=== PATIENT | female | born 1990 | race Caucasian/White ===

== ENCOUNTER 2017-04-09 19:49 | Emergency (ER) | payer OTHER ==
[2017-04-09 20:22] LABS: Glucose,Whole Blood 76 mg/dL (75-99)
--- NOTE | 2017-04-09 20:29 | ED ---
General Adult HPI - General Chief complaint: Syncope Stated complaint: Dizziness Time Seen by Provider: 04/09/17 20:17 Source: patient, RN notes reviewed, old records reviewed Mode of arrival: wheelchair Limitations: no limitations - History of Present Illness Initial comments: This is a 26-year-old female here for reevaluation syncopal event. Patient has had multiple sick movements the last year. No significant medical history of cause of syncope. No headache or chest pain or stress breath abdominal pain. Syncope is positional when she gets up from standing or walking. Happened 3 times today. She does admit to recent weight loss, no change in medications. No [id number] medications - Related Data Home Medications Medication Instructions Recorded Confirmed Inulin/Chromium Picolinate [Fiber 2 tab PO DAILY 04/09/17 04/09/17 Gummies Chew] Levothyroxine Sodium [Synthroid] 100 mcg PO Q48H 04/09/17 04/09/17 Topiramate [Topamax] 100 mg PO BID 04/09/17 04/09/17 Allergies Allergy/AdvReac Type Severity Reaction Status Date / Time cefaclor [From Ceclor] Allergy Unknown Verified 04/09/17 20:00 cephalexin monohydrate Allergy Unknown Verified 04/09/17 20:00 [From Keflex] Penicillins Allergy Unknown Verified 04/09/17 20:00 Sulfa (Sulfonamide Allergy Unknown Verified 04/09/17 20:00 Antibiotics) Review of Systems ROS Statement: Those systems with pertinent positive or pertinent negative responses have been documented in the HPI. ROS Other: All systems not noted in ROS Statement are negative. Past Medical History Past Medical History: Thyroid Disorder Additional Past Medical History / Comment(s): migraines, hypothyroid History of Any Multi-Drug Resistant Organisms: None Reported Past Surgical History: Appendectomy, Section Past Anesthesia/Blood Transfusion Reactions: No Reported Reaction Past Psychological History: Anxiety, Bipolar, Depression Additional Psychological History / Comment(s): pt does not take meds or see a counselor. Smoking Status: Never smoker Past Alcohol Use History: Occasional Past Drug Use History: None Reported - Past Family History Father Family Medical History: Hypertension General Exam Limitations: no limitations General appearance: alert, in no apparent distress Head exam: Present: atraumatic, normocephalic, normal inspection Eye exam: Present: normal appearance, PERRL, EOMI. Absent: scleral icterus, conjunctival injection, periorbital swelling ENT exam: Present: normal exam, mucous membranes moist Neck exam: Present: normal inspection. Absent: tenderness, meningismus, lymphadenopathy Respiratory exam: Present: normal lung sounds bilaterally. Absent: respiratory distress, wheezes, rales, rhonchi, stridor Cardiovascular Exam: Present: regular rate, normal rhythm, normal heart sounds. Absent: systolic murmur, diastolic murmur, rubs, gallop, clicks GI/Abdominal exam: Present: soft, normal bowel sounds. Absent: distended, tenderness, guarding, rebound, rigid Extremities exam: Present: normal inspection, full ROM, normal capillary refill. Absent: tenderness, pedal edema, joint swelling, calf tenderness Back exam: Present: normal inspection Neurological exam: Present: alert, oriented X3, CN II-XII intact Psychiatric exam: Present: normal affect, normal mood Skin exam: Present: warm, dry, intact, normal color. Absent: rash Course Vital Signs 04/09/17 19:50 Temperature 98.4 F Pulse Rate 58 L Respiratory 16 Rate Blood Pressure 126/75 O2 Sat by Pulse 99 Oximetry - Reevaluation(s) Reevaluation #1: 04/09/17 20:28 History remain without syncopal event here in the emergency room Reevaluation #2: 04/09/17 20:28 Patient greater than 15 minutes regarding diagnosis, patient agrees to plan 04/09/17 20:28 EKG Findings - EKG Comments: EKG Findings:: EKG shows sinus bradycardia rate of 55, GA 42, QRS 96, QTC 392, no WPW, no Brugada Medical Decision Making - Medical Decision Making 26 female neurosyncope, positional syncope. Orthostatic EKG and urine is negative. Patient can be discharged on - Lab Data Lab Results 04/09/17 Range/Units 20:21 POC Glucose (mg/dL) 76 (75-99) mg/dL POC Glu Plaster Foreman ID Barbara Gonzalez Disposition Clinical Impression: Vasovagal syncope Disposition: HOME SELF-CARE Condition: Good Instructions: Syncope (ED) Referrals: Hortencia Zelaya MD [STAFF PHYSICIAN] - 1-2 days
[2017-04-09 21:04] VITALS: BP 116/67; PULSE 52; RESP 18; TEMP 99.1
== END 2017-04-09 21:03 | disposition home or self-care (01) ==
LOC: EC 19:49
DX: R55 Syncope and collapse (principal); E03.9 Hypothyroidism, unspecified; Z79.4 Long term (current) use of insulin; Z79.899 Other long term (current) drug therapy; Z88.0 Allergy status to penicillin; Z88.2 Allergy status to sulfonamides; Z88.1 Allergy status to other antibiotic agents; Z88.8 Allergy status to other drugs, medicaments and biological substances
CPT/HCPCS: 36415; 93005; 99284

== ENCOUNTER → 2017-05-31 | Outpatient (CLI) | payer OTHER ==
[2017-05-31 09:36] VITALS: BMI 27.3
== END | disposition home or self-care (01) ==
LOC: MNTWWP 09:05
PROVIDERS: ATTEND Family Medicine
DX: E16.2 Hypoglycemia, unspecified (principal)
CPT/HCPCS: 97802

== ENCOUNTER → 2017-12-29 | Outpatient (CLI) | payer OTHER ==
[2017-12-29 11:31] LABS: Basophils % (A) 1 %; Eosinophils # (A) 0.1 k/uL (0-0.7); Eosinophils % (A) 1 %; HCT 39.9 % (34.0-46.0); HGB 13.7 gm/dL (11.4-16.0); Lymphocytes # (A) 2.5 k/uL (1.0-4.8); Lymphocytes % (A) 39 %; MCHC 34.2 g/dL (31.0-37.0); MCV 87.5 fL (80.0-100.0); Mean Platelet Volume 6.7; Monocytes # (A) 0.3 k/uL (0-1.0); Monocytes % (A) 5 %; Neutrophils # (A) 3.5 k/uL (1.3-7.7); Neutrophils % (A) 53 %; Platelet Count 353 k/uL (150-450); RBC 4.56 m/uL (3.80-5.40); RDW 13.2 % (11.5-15.5); WBC 6.6 k/uL (3.8-10.6)
[2017-12-29 12:05] LABS: ALT 23 U/L (9-52); AST 17 U/L (14-36); Albumin 3.8 g/dL (3.5-5.0); Alkaline Phosphatase 50 U/L (38-126); Anion Gap 11 mmol/L; Blood Urea Nitrogen 13 mg/dL (7-17); Calcium 9.4 mg/dL (8.4-10.2); Carbon Dioxide 19 mmol/L (22-30); Chloride 113 mmol/L (98-107); Cholesterol 163 mg/dL (<200); Glucose 79 mg/dL (74-99); HDL Cholesterol 52 mg/dL (40-60); LDL Cholesterol,Calculated 102 mg/dL (0-99); Potassium 3.9 mmol/L (3.5-5.1); Sodium 143 mmol/L (137-145); Total Bilirubin 0.9 mg/dL (0.2-1.3); Triglycerides 44 mg/dL (<150)
[2017-12-29 12:18] LABS: T4, Free (Free Thyroxine) 1.01 ng/dL (0.78-2.19)
== END | disposition home or self-care (01) ==
LOC: LABWHC1 10:39
PROVIDERS: ATTEND Family Medicine
DX: Z00.00 Encounter for general adult medical examination without abnormal findings (principal); E03.9 Hypothyroidism, unspecified
CPT/HCPCS: 36415; 80053; 80061; 84439; 84443; 85025

== ENCOUNTER 2019-01-30 13:35 | Emergency (ER) | payer BC, OTHER ==
[2019-01-30 13:51] VITALS: BP 109/68; PULSE 80; RESP 18; TEMP 97.9
[2019-01-30] MEDS ORDERED: DIAZEPAM 5 MG TAB PO STA (14:10)
[2019-01-30] MEDS ORDERED: ACET/COD 300 MG/30 MG STARTER PACK 6 TAB BTL PO STA (14:10)
--- NOTE | 2019-01-30 14:12 | ED ---
General Adult HPI - General Chief complaint: Back Pain/Injury Stated complaint: Back injury Source: patient Mode of arrival: wheelchair Limitations: no limitations - History of Present Illness Initial comments: 28-year-old female presenting today for bilateral low back pain. Patient states yesterday around 4 PM she bent over to grab a laundry basket. She states before she could grab the basket she felt a pop in her lower back and discomfort. She states that she has had bilateral low back pain she states she is unable to get in a comfortable position and increases with walking. She states at times the pain radiates down her legs bilaterally. Patient denies any urinary retention, loss of bowel bladder control, loss of sensation, numbness tingling or muscle weakness of the lower extremity is spared patient states she is able to ambulate however it is painful. Patient denies history of IV drug use, history of cancer, fever chills or night sweats. Remaining review of system negative, patient denies any recent shortness of breath, chest pain, abdominal pain, nausea or vomiting, dysuria or hematuria, constipation or diarrhea, headaches or visual changes, or any other complaints. On arrival patient's vital signs within normal limits. Patient is well-appearing no signs of acute distress. Patient ambulatory. - Related Data Home Medications Medication Instructions Recorded Confirmed Inulin/Chromium Picolinate [Fiber 2 tab PO DAILY 04/09/17 04/09/17 Gummies Chew] Levothyroxine Sodium [Synthroid] 100 mcg PO Q48H 04/09/17 04/09/17 Topiramate [Topamax] 100 mg PO BID 04/09/17 04/09/17 Previous Rx's Medication Instructions Recorded Cyclobenzaprine [Flexeril] 10 mg PO TID PRN 7 Days #21 tab 01/30/19 Ibuprofen 800 mg PO Q8H PRN 7 Days #21 tablet 01/30/19 Allergies Allergy/AdvReac Type Severity Reaction Status Date / Time cefaclor [From Ceclor] Allergy Unknown Verified 01/30/19 13:51 cephalexin monohydrate Allergy Unknown Verified 01/30/19 13:51 [From Keflex] Penicillins Allergy Unknown Verified 01/30/19 13:51 Sulfa (Sulfonamide Allergy Unknown Verified 01/30/19 13:51 Antibiotics) Review of Systems ROS Statement: Those systems with pertinent positive or pertinent negative responses have been documented in the HPI. ROS Other: All systems not noted in ROS Statement are negative. Past Medical History Past Medical History: Thyroid Disorder Additional Past Medical History / Comment(s): migraines, hypothyroid History of Any Multi-Drug Resistant Organisms: None Reported Past Surgical History: Appendectomy, Section Past Anesthesia/Blood Transfusion Reactions: No Reported Reaction Past Psychological History: Anxiety, Bipolar, Depression Smoking Status: Never smoker Past Alcohol Use History: Occasional Past Drug Use History: None Reported - Past Family History Father Family Medical History: Hypertension General Exam - General Exam Comments Initial Comments: General: The patient is awake and alert, in no distress, and does not appear acutely ill. Eye: +3 mm pupils are equal, round and reactive to light, extra-ocular movements are intact. No nystagmus. There is normal conjunctiva bilaterally. No signs of icterus. Ears, nose, mouth and throat: There are moist mucous membranes and no oral lesions. Neck: The neck is supple, there is no tenderness or JVD. Cardiovascular: There is a regular rate and rhythm. No murmur, rub or gallop is appreciated. Respiratory: Lungs are clear to auscultation, respirations are non-labored, b reath sounds are equal. No wheezes, stridor, rales, or rhonchi. Gastrointestinal: Soft, non-distended, non-tender abdomen without masses or organomegaly noted. There is no rebound or guarding present. Musculoskeletal: Upon inspection of the back no bruising, erythema. pt has both midline and tenderness to palpation of the lumbar spine. Muscle spasm palpable. Normal ROM, no tenderness of the LE equal b/l. Strength 5/5 of the LE equal b/l. Sensation intact of the lower extremities equal bilaterally including saddle region. Radial pulses equal bilaterally 2+. Neurological: A&O x 3. CN II-XII intact, There are no obvious motor or sensory deficits. Coordination appears grossly intact. Speech is normal. Skin: Skin is warm and dry and no rashes or lesions are noted. Psychiatric: Cooperative, appropriate mood & affect, normal judgment. Limitations: no limitations Course Vital Signs 01/30/19 13:49 Temperature 97.9 F Pulse Rate 80 Respiratory 18 Rate Blood Pressure 109/68 O2 Sat by Pulse 97 Oximetry Medical Decision Making - Medical Decision Making 28yo female presenting today for chief complaint of low back pain. Patient bent forward yesterday experiencing low back pain. Patient has paravertebral tenderness as well as midline on examination. No back flags on history taking. No history of significant trauma. DDX low back strain vs bulging disc. Patient has no neurovascular deficits. Patient appears well ambulatory. No findings concerning for cauda equina. This time I feel patient is stable for discharge with primary care follow-up. I insisted that patient's symptoms persist for greater than one week she's evaluated by orthopedic surgery. Patient states she has established care. Return parameters were discussed at length and in detail with patient including besides symptoms concerning for cauda equina. She verbalized understanding. Patient was treated symptomatically within the [facility] department. Patient be discharged with muscle relaxant, and was provided with a work note. Patient is agreeable with plan and foregoing imaging studies today. I discussed the case attending provider Dr. Cruz, who is agreeable with plan and discharge. Disposition Clinical Impression: Low back strain, Low back pain Disposition: HOME SELF-CARE Condition: Good Instructions (If sedation given, give patient instructions): Acute Low Back Pain (ED) Additional Instructions: Please use medication as discussed. Please follow-up with family doctor in the next 2 days, if symptoms persist for greater than 2 weeks please follow-up with orthopedic surgery. Please return to emergency room if the symptoms increase or worsen or for any other concerns. Prescriptions: Cyclobenzaprine [Flexeril] 10 mg PO TID PRN 7 Days #21 tab PRN Reason: Muscle Spasm Ibuprofen 800 mg PO Q8H PRN 7 Days #21 tablet PRN Reason: Pain Is patient prescribed a controlled substance at d/c from ED?: No Referrals: Jero Scott MD [Primary Care Provider] - 1-2 days Time of Disposition: 14:12
== END 2019-01-30 14:20 | disposition home or self-care (01) ==
LOC: EC 13:35
DX: S39.012A Strain of muscle, fascia and tendon of lower back, initial encounter (principal); E03.9 Hypothyroidism, unspecified; G43.909 Migraine, unspecified, not intractable, without status migrainosus; Z79.890 Hormone replacement therapy; Z79.899 Other long term (current) drug therapy; Z88.1 Allergy status to other antibiotic agents; Z88.0 Allergy status to penicillin; Z88.2 Allergy status to sulfonamides; X50.9XXA Other and unspecified overexertion or strenuous movements or postures, initial encounter
CPT/HCPCS: 99283

== ENCOUNTER 2020-12-26 23:45 | Emergency (ER) | payer BC ==
[2020-12-27] VITALS: RESP 18; TEMP 98.3
--- NOTE | 2020-12-27 00:02 | ED ---
Abdominal Pain HPI - General Chief Complaint: Abdominal Pain Stated Complaint: Abdominal Pain, 5 wks pgt Time Seen by Provider: 12/26/20 23:51 Source: patient Mode of arrival: ambulatory Limitations: no limitations - History of Present Illness Initial Comments: 30yo female presenting for cc of lower pelvic cramping. pt states she believes she is approximately 5 week . she states that for the past 24 hours she has had sharp cramping in the lower pelvic pain bilaterally. patient denies upper abdominal pain, nausea, vomiting, unilateral pain, urinary symptoms, vaginal bleeding or discharge. Denies previous US. Patient denies previous ectopic pregnancies. Patient denies additional complaints. she appears nontoxic in no acute distress on arrival. - Related Data Home Medications Medication Instructions Recorded Confirmed Inulin/Chromium Picolinate [Fiber 2 tab PO DAILY 04/09/17 04/09/17 Gummies Chew] Levothyroxine Sodium [Synthroid] 100 mcg PO Q48H 04/09/17 04/09/17 Topiramate [Topamax] 100 mg PO BID 04/09/17 04/09/17 Previous Rx's Medication Instructions Recorded Cyclobenzaprine [Flexeril] 10 mg PO TID PRN 7 Days #21 tab 01/30/19 Ibuprofen 800 mg PO Q8H PRN 7 Days #21 tablet 01/30/19 Allergies Allergy/AdvReac Type Severity Reaction Status Date / Time cefaclor [From Ceclor] Allergy Unknown Verified 01/30/19 13:51 cephalexin monohydrate Allergy Unknown Verified 01/30/19 13:51 [From Keflex] Penicillins Allergy Unknown Verified 01/30/19 13:51 Sulfa (Sulfonamide Allergy Unknown Verified 01/30/19 13:51 Antibiotics) Review of Systems ROS Statement: Those systems with pertinent positive or pertinent negative responses have been documented in the HPI. ROS Other: All systems not noted in ROS Statement are negative. Past Medical History Past Medical History: Thyroid Disorder Additional Past Medical History / Comment(s): migraines, hypothyroid History of Any Multi-Drug Resistant Organisms: None Reported Past Surgical History: Appendectomy, Section Past Anesthesia/Blood Transfusion Reactions: No Reported Reaction Past Psychological History: Anxiety, Bipolar, Depression Smoking Status: Never smoker Past Alcohol Use History: Occasional Past Drug Use History: None Reported - Past Family History Father Family Medical History: Hypertension General Exam - General Exam Comments Initial Comments: General: The patient is awake and alert, in no distress Eye: +3 mm pupils are equal, round and reactive to light, extra-ocular movements are intact. No nystagmus. There is normal conjunctiva bilaterally. No signs of icterus. Ears, nose, mouth and throat: There are moist mucous membranes and no oral lesions. Neck: The neck is supple, there is no tenderness or JVD. Cardiovascular: There is a regular rate and rhythm. No murmur, rub or gallop is appreciated. Respiratory: Lungs are clear to auscultation, respirations are non-labored, breath sounds are equal. No wheezes, stridor, rales, or rhonchi. Gastrointestinal: Soft, non-distended, mild lower pelvic tenderness, abdomen without masses or organomegaly noted. There is no rebound or guarding present. : There is no cervical motion tenderness, no vaginal bleeding, scant discharge, OS appears closed. no adnexal tenderness. Musculoskeletal: Normal ROM, no tenderness. Strength 5/5. Sensation intact. R adial pulses equal bilaterally 2+. Neurological: A&O x 3. CN II-XII intact grossly, There are no obvious motor or sensory deficits. Coordination appears grossly intact. Speech is normal. Skin: Skin is warm and dry and no rashes or lesions are noted. Psychiatric: Cooperative, appropriate mood & affect, normal judgment. Limitations: no limitations Course Vital Signs 12/26/20 12/27/20 23:57 01:00 Temperature 98.3 F Pulse Rate 89 82 Respiratory 18 18 Rate Blood Pressure 124/83 121/82 O2 Sat by Pulse 97 97 Oximetry Medical Decision Making - Medical Decision Making US gestational sac-no pole or yolk correlate with patient LMP. exam some mild felt to be physiological discharge. No cervical motion tenderness no adnexal tenderness eyes closed. No vaginal bleeding. Patient has no McBurneys point or localized left sided or right sided tenderness at this time I recommend OB f/u in office, home monitoring of tenderness, return for bleeding/worsening pain. pt is agreeable to this care plan and discharge. - Lab Data Result diagrams: 12/27/20 00:07 12/27/20 00:07 Lab Results 12/27/20 12/27/20 12/27/20 Range/Units 00:07 00:07 00:07 WBC 11.4 H (3.8-10.6) k/uL RBC 4.74 (3.80-5.40) m/uL Hgb 13.5 (11.4-16.0) gm/dL Hct 39.7 (34.0-46.0) % MCV 83.8 (80.0-100.0) fL MCH 28.5 (25.0-35.0) pg MCHC 34.1 (31.0-37.0) g/dL RDW 13.7 (11.5-15.5) % Plt Count 419 (150-450) k/uL MPV 6.9 Neutrophils % 64 % Lymphocytes % 28 % Monocytes % 5 % Eosinophils % 1 % Basophils % 1 % Neutrophils # 7.4 (1.3-7.7) k/uL Lymphocytes # 3.2 (1.0-4.8) k/uL Monocytes # 0.5 (0-1.0) k/uL Eosinophils # 0.1 (0-0.7) k/uL Basophils # 0.1 (0-0.2) k/uL Sodium 136 L (137-145) mmol/L Potassium 3.8 (3.5-5.1) mmol/L Chloride 106 (98-107) mmol/L Carbon Dioxide 20 L (22-30) mmol/L Anion Gap 10 mmol/L BUN 10 (7-17) mg/dL Creatinine 0.69 (0.52-1.04) mg/dL Est GFR (CKD-EPI)AfAm >90 (>60 ml/min/1.73 sqM) Est GFR (CKD-EPI)NonAf >90 (>60 ml/min/1.73 sqM) Glucose 102 H (74-99) mg/dL Calcium 9.5 (8.4-10.2) mg/dL Total Bilirubin 0.3 (0.2-1.3) mg/dL AST 19 (14-36) U/L ALT 14 (4-34) U/L Alkaline Phosphatase 59 (38-126) U/L Total Protein 7.7 (6.3-8.2) g/dL Albumin 4.1 (3.5-5.0) g/dL HCG, Quant 70886.7 mIU/mL Urine Color Urine Appearance (Clear) Urine pH (5.0-8.0) Ur Specific [place] (1.001-1.035) Urine Protein (Negative) Urine Glucose (UA) (Negative) Urine Ketones (Negative) Urine Blood (Negative) Urine Nitrite (Negative) Urine Bilirubin (Negative) Urine Urobilinogen (<2.0) mg/dL Ur Leukocyte Esterase (Negative) Urine RBC (0-5) /hpf Urine WBC (0-5) /hpf Ur Squamous Epith Cells (0-4) /hpf Amorphous Sediment (None) /hpf Urine Bacteria (None) /hpf Urine Mucus (None) /hpf Trichomonas Ag (Rapid) (Negative) Blood Type B Positive Blood Type Recheck No Previous Record Bld Type Recheck Status [facility] 12/27/20 12/27/20 Range/Units 00:35 01:58 WBC (3.8-10.6) k/uL RBC (3.80-5.40) m/uL Hgb (11.4-16.0) gm/dL Hct (34.0-46.0) % MCV (80.0-100.0) fL MCH (25.0-35.0) pg MCHC (31.0-37.0) g/dL RDW (11.5-15.5) % Plt Count (150-450) k/uL MPV Neutrophils % % Lymphocytes % % Monocytes % % Eosinophils % % Basophils % % Neutrophils # (1.3-7.7) k/uL Lymphocytes # (1.0-4.8) k/uL Monocytes # (0-1.0) k/uL Eosinophils # (0-0.7) k/uL Basophils # (0-0.2) k/uL Sodium (137-145) mmol/L Potassium (3.5-5.1) mmol/L Chloride (98-107) mmol/L Carbon Dioxide (22-30) mmol/L Anion Gap mmol/L BUN (7-17) mg/dL Creatinine (0.52-1.04) mg/dL Est GFR (CKD-EPI)AfAm (>60 ml/min/1.73 sqM) Est GFR (CKD-EPI)NonAf (>60 ml/min/1.73 sqM) Glucose (74-99) mg/dL Calcium (8.4-10.2) mg/dL Total Bilirubin (0.2-1.3) mg/dL AST (14-36) U/L ALT (4-34) U/L Alkaline Phosphatase (38-126) U/L Total Protein (6.3-8.2) g/dL Albumin (3.5-5.0) g/dL HCG, Quant mIU/mL Urine Color Light Yellow Urine Appearance Cloudy H (Clear) Urine pH 5.5 (5.0-8.0) Ur Specific [place] 1.009 (1.001-1.035) Urine Protein Negative (Negative) Urine Glucose (UA) Negative (Negative) Urine Ketones Negative (Negative) Urine Blood Negative (Negative) Urine Nitrite Negative (Negative) Urine Bilirubin Negative (Negative) Urine Urobilinogen <2.0 (<2.0) mg/dL Ur Leukocyte Esterase Negative (Negative) Urine RBC 1 (0-5) /hpf Urine WBC 1 (0-5) /hpf Ur Squamous Epith Cells 13 H (0-4) /hpf Amorphous Sediment Rare H (None) /hpf Urine Bacteria Rare H (None) /hpf Urine Mucus Rare H (None) /hpf Trichomonas Ag (Rapid) Negative (Negative) Blood Type Blood Type Recheck Bld Type Recheck Status Disposition Clinical Impression: Abdominal cramping affecting Disposition: HOME SELF-CARE Condition: Good Instructions (If sedation given, give patient instructions): Threatened Mi scarriage (ED) Additional Instructions: Please use medication as discussed. Please follow-up with OBGYN in the next 2 days. Please return to emergency room if the symptoms increase or worsen or for any other concerns. Is patient prescribed a controlled substance at d/c from ED?: No Referrals: Jero Scott MD [Primary Care Provider] - 1-2 days Time of Disposition: 01:47
[2020-12-27] MEDS ORDERED: ONDANSETRON 4 MG/2 ML VIAL IVP STA (00:24)
[2020-12-27 00:36] LABS: Basophils # (A) 0.1 k/uL (0-0.2); Basophils % (A) 1 %; Eosinophils # (A) 0.1 k/uL (0-0.7); Eosinophils % (A) 1 %; HCT 39.7 % (34.0-46.0); HGB 13.5 gm/dL (11.4-16.0); Lymphocytes # (A) 3.2 k/uL (1.0-4.8); Lymphocytes % (A) 28 %; MCH 28.5 pg (25.0-35.0); MCHC 34.1 g/dL (31.0-37.0); MCV 83.8 fL (80.0-100.0); Mean Platelet Volume 6.9; Monocytes # (A) 0.5 k/uL (0-1.0); Monocytes % (A) 5 %; Neutrophils # (A) 7.4 k/uL (1.3-7.7); Neutrophils % (A) 64 %; Platelet Count 419 k/uL (150-450); RBC 4.74 m/uL (3.80-5.40); RDW 13.7 % (11.5-15.5); WBC 11.4 k/uL (3.8-10.6)
[2020-12-27 00:46] LABS: African American GFR (CKD) >90 (>60 ml/min/1.73 sqM); Anion Gap 10 mmol/L; Blood Urea Nitrogen 10 mg/dL (7-17); Carbon Dioxide 20 mmol/L (22-30); Chloride 106 mmol/L (98-107); Glucose 102 mg/dL (74-99); Potassium 3.8 mmol/L (3.5-5.1); Sodium 136 mmol/L (137-145)
[2020-12-27 00:47] LABS: ALT 14 U/L (4-34); AST 19 U/L (14-36); Albumin 4.1 g/dL (3.5-5.0); Alkaline Phosphatase 59 U/L (38-126); Calcium 9.5 mg/dL (8.4-10.2); Non-African American GFR(CKD) >90 (>60 ml/min/1.73 sqM); Total Bilirubin 0.3 mg/dL (0.2-1.3); Total Protein 7.7 g/dL (6.3-8.2)
--- NOTE | 2020-12-27 01:25 | US ---
EXAM: US First Trimester , Transabdominal CLINICAL HISTORY: ITS.REASON US Reason: pain TECHNIQUE: Real-time transabdominal obstetrical ultrasound of the maternal pelvis and a first trimester with image documentation. COMPARISON: None FINDINGS: Uterus: Measures 8.9 x 5.5 x 5.7 cm. Gestational sac identified within the endometrial cavity, with mean sac diameter measuring 0.61 cm. No pole or yolk sac identified on this exam. Cervix is long and closed. Placenta/amniotic fluid: Cannot be adequately evaluated due to the early gestational age. Ovaries: The right ovary measures 1.5 x 2.0 x 1.3 cm. The left ovary measures 1.5 x 2.1 x 1.4 cm. The ovaries demonstrate normal color flow. Other: No free fluid is identified. No adnexal mass. LMP: 11/18/2020 GA by LMP: 5 weeks 4 days MAYLIN by LMP: 08/25/2021 Average ultrasound age: Gestational sac is too small to correlate with a gestational age. IMPRESSION: Single intrauterine gestational sac. No pole or yolk sac identified on this exam. Findings may be due to early stage of . Please correlate with serial beta hCG measurements and short-term follow-up exam if clinically indicated.
[2020-12-27 01:26] LABS: HCG,Quantitative Serum 11758.7 mIU/mL
[2020-12-27 01:58] VITALS: BP 121/82; PULSE 82
[2020-12-27 02:17] LABS: Amorphous Sediment,Urine Rare /hpf; Appearance,Urine Cloudy (Clear); Bacteria,Urine Rare /hpf; Bilirubin,Urine Negative (Negative); Blood,Urine Negative (Negative); Color,Urine Light Yellow; Glucose,Urine (UA) Negative (Negative); Ketones,Urine Negative (Negative); Leukocyte Esterase,Urine Negative (Negative); Mucus,Urine Rare /hpf; Nitrite,Urine Negative (Negative); PH, Urine 5.5 (5.0-8.0); Protein,Urine Negative (Negative); RBC,Urine 1 /hpf (0-5); Specific Gravity,Urine 1.009 (1.001-1.035); Squamous Epithelial Cell,Urine 13 /hpf (0-4); Urobilinogen,Urine <2.0 mg/dL (<2.0); WBC,Urine 1 /hpf (0-5)
[2020-12-29 13:30] LABS: C. trachomatis,PCR Negative (Neg,Equiv); Chlamydia trachomatis Source Vagina; N. gonorrhoeae,PCR Negative (Neg,Equiv); Neisseria Source Vagina
== END 2020-12-27 02:35 | disposition home or self-care (01) ==
LOC: EC 23:45
DX: O99.891 Other specified diseases and conditions complicating pregnancy (principal); R10.30 Lower abdominal pain, unspecified; O99.281 Endocrine, nutritional and metabolic diseases complicating pregnancy, first trimester; E03.9 Hypothyroidism, unspecified; O99.351 Diseases of the nervous system complicating pregnancy, first trimester; G43.909 Migraine, unspecified, not intractable, without status migrainosus; Z88.1 Allergy status to other antibiotic agents; Z79.890 Hormone replacement therapy; Z88.0 Allergy status to penicillin; Z88.2 Allergy status to sulfonamides; Z79.899 Other long term (current) drug therapy; Z3A.01 Less than 8 weeks gestation of pregnancy
CPT/HCPCS: 36415; 86900; 86901; 80053; 85025; 81001; 84702; 87808; 87491; 87591; 87070; 76801; 99284; 96374; J2405

== ENCOUNTER 2021-06-15 19:07 | Emergency (ER) | payer BC ==
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
[2021-06-15 20:15] LABS: Appearance,Urine Clear (Clear); Bilirubin,Urine Negative (Negative); Blood,Urine Negative (Negative); Color,Urine Colorless; Glucose,Urine (UA) Negative (Negative); Ketones,Urine Negative (Negative); Leukocyte Esterase,Urine Negative (Negative); Nitrite,Urine Negative (Negative); Protein,Urine Negative (Negative); Specific Gravity,Urine 1.002 (1.001-1.035); Urobilinogen,Urine <2.0 mg/dL (<2.0)
[2021-06-15 20:18] LABS: Amphetamine Screen,Urine Not Detected (NotDetected); Barbiturate Screen,Urine Not Detected (NotDetected); Benzodiazepines Screen,Urine Not Detected (NotDetected); Cocaine Screen,Urine Not Detected (NotDetected); Methadone Screen, Urine Not Detected (NotDetected); Opiate Screen,Urine Not Detected (NotDetected); Oxycodone Screen, Urine Not Detected (NotDetected); Phencyclidine Screen,Urine Not Detected (NotDetected); Tricyclic Antidepressant,Urine Not Detected (NotDetected); Urn Cannabinoid Scrn Not Detected (NotDetected)
[2021-06-15 23:30] VITALS: BP 127/92; PULSE 114; RESP 18; TEMP 98.8
== END 2021-06-15 23:33 | disposition home or self-care (01) ==
LOC: EC 19:07
DX: O99.343 Other mental disorders complicating pregnancy, third trimester (principal); F43.21 Adjustment disorder with depressed mood; E03.9 Hypothyroidism, unspecified; E07.9 Disorder of thyroid, unspecified; Z88.0 Allergy status to penicillin; Z88.2 Allergy status to sulfonamides; Z90.49 Acquired absence of other specified parts of digestive tract; Z3A.30 30 weeks gestation of pregnancy
CPT/HCPCS: 80306; 81003; 99284

== ENCOUNTER 2021-12-11 11:34 | Emergency (ER) | payer BC, OTHER ==
[2021-12-11 11:38] VITALS: BP 129/87; PULSE 89; RESP 16; TEMP 98.5
[2021-12-11] MEDS ORDERED: SODIUM CHLORIDE 0.9% 1,000 ML IV STA (12:41)
[2021-12-11 13:00] LABS: Basophils % (A) 0 %; Eosinophils # (A) 0.1 k/uL (0-0.7); Eosinophils % (A) 1 %; HCT 36.7 % (34.0-46.0); HGB 12.2 gm/dL (11.4-16.0); Lymphocytes # (A) 2.4 k/uL (1.0-4.8); Lymphocytes % (A) 29 %; MCH 27.2 pg (25.0-35.0); MCHC 33.3 g/dL (31.0-37.0); MCV 81.6 fL (80.0-100.0); Monocytes # (A) 0.3 k/uL (0-1.0); Monocytes % (A) 4 %; Neutrophils # (A) 5.3 k/uL (1.3-7.7); Neutrophils % (A) 64 %; Platelet Count 370 k/uL (150-450); WBC 8.4 k/uL (3.8-10.6)
[2021-12-11 13:12] LABS: ALT 13 U/L (4-34); AST 20 U/L (14-36); African American GFR (CKD) >90 (>60 ml/min/1.73 sqM); Albumin 3.7 g/dL (3.5-5.0); Alkaline Phosphatase 93 U/L (38-126); Anion Gap 6 mmol/L; Blood Urea Nitrogen 13 mg/dL (7-17); Calcium 9.1 mg/dL (8.4-10.2); Carbon Dioxide 24 mmol/L (22-30); Chloride 109 mmol/L (98-107); Glucose 80 mg/dL (74-99); Non-African American GFR(CKD) >90 (>60 ml/min/1.73 sqM); Potassium 3.9 mmol/L (3.5-5.1); Sodium 139 mmol/L (137-145); Total Bilirubin 0.6 mg/dL (0.2-1.3); Total Protein 7.2 g/dL (6.3-8.2)
--- NOTE | 2021-12-11 13:22 | ED ---
ENT HPI - General Chief complaint: ENT Stated complaint: Swollen tonsil Time Seen by Provider: 12/11/21 12:06 Source: patient Mode of arrival: ambulatory Limitations: no limitations - History of Present Illness Initial comments: This 31-year-old female presents to the emergency department with right tonsil pain 7 days. Patient states she has had a tonsil abscess in her past on that same tonsil. Patient states she is having slight trouble swallowing food, however she is able to swallow saliva and drink water, however she does experience pain when doing this. Patient does states she is unable to fully open her mouth due to pain. Patient denies any fever, trouble breathing, raspy voice, trouble speaking, chest pain, shortness of breath, abdominal pain, nausea, vomiting, change in vision. - Related Data Home Medications Medication Instructions Recorded Confirmed Levothyroxine Sodium [Synthroid] 100 mcg PO HS 04/09/17 06/15/21 Cholecalciferol [Vitamin D3 (25 50 mcg PO DAILY 06/15/21 06/15/21 Mcg = 1000 Iu)] Famotidine [Pepcid] 20 mg PO BID 06/15/21 06/15/21 Gummie 1 tab PO HS 06/15/21 06/15/21 Sertraline [Zoloft] 100 mg PO HS 06/15/21 06/15/21 Previous Rx's Medication Instructions Recorded Clindamycin HCl 300 mg PO QID #40 cap 12/11/21 Clindamycin [Cleocin] 300 mg PO TID 10 Days #60 cap 12/11/21 Allergies Allergy/AdvReac Type Severity Reaction Status Date / Time cefaclor [From Ceclor] Allergy Unknown Verified 12/11/21 11:35 cephalexin monohydrate Allergy Unknown Verified 12/11/21 11:35 [From Keflex] Penicillins Allergy Unknown Verified 12/11/21 11:35 Sulfa (Sulfonamide Allergy Unknown Verified 12/11/21 11:35 Antibiotics) Review of Systems ROS Statement: Those systems with pertinent positive or pertinent negative responses have been documented in the HPI. ROS Other: All systems not noted in ROS Statement are negative. Past Medical History Past Medical History: Thyroid Disorder Additional Past Medical History / Comment(s): migraines, hypothyroid History of Any Multi-Drug Resistant Organisms: None Reported Past Surgical History: Appendectomy, Section, Cholecystectomy Past Anesthesia/Blood Transfusion Reactions: No Reported Reaction Past Psychological History: Anxiety, Bipolar, Depression Smoking Status: Never smoker Past Alcohol Use History: Occasional Past Drug Use History: None Reported - Past Family History Father Family Medical History: Hypertension General Exam Limitations: no limitations General appearance: alert, in no apparent distress Head exam: Present: atraumatic, normocephalic, normal inspection Eye exam: Present: EOMI ENT exam: Present: mucous membranes moist (Moist mucous membranes with tongue resting on for now. No signs of Enoch's angina), other (Right tonsil with abscess noted. Uvula slightly deviated to the left. Patient able to open her mouth, visualized tonsil with tongue depressor use. Patient without any respiratory distress or trouble breathing) Neck exam: Present: tenderness (Anterior neck with tenderness to palpation on right side.), full ROM Respiratory exam: Present: normal lung sounds bilaterally. Absent: respiratory distress, wheezes, rales, rhonchi, stridor Cardiovascular Exam: Present: regular rate, normal rhythm, normal heart sounds. Absent: systolic murmur, diastolic murmur, rubs, gallop, clicks GI/Abdominal exam: Present: soft, normal bowel sounds. Absent: distended, tenderness, guarding, rebound, rigid Extremities exam: Present: normal inspection, full ROM, normal capillary refill. Absent: tenderness, pedal edema, joint swelling, calf tenderness Back exam: Absent: tenderness, CVA tenderness (R), CVA tenderness (L) Neurological exam: Present: alert, oriented X3, CN II-XII intact Psychiatric exam: Present: normal affect, normal mood Skin exam: Present: warm, dry, intact, normal color. Absent: rash Course Vital Signs 12/11/21 11:35 Temperature 98.5 F Pulse Rate 89 Respiratory 16 Rate Blood Pressure 129/87 O2 Sat by Pulse 97 Oximetry Procedures - Incision & Drainage Consent Obtained: verbal consent Site: other (Peritonsillar abscess) Anesthetic Used: lidocaine 1% I&D Drainage Obtained: Blood Patient Tolerated Procedure: well, no complications Medical Decision Making - Medical Decision Making This 31-year-old female with past medical history of peritonsillar abscess presents to the emergency department with right tonsil pain 1 week. Labs all unremarkable. CT soft tissue neck with contrast impression: Enlarged right tonsil hypodense central area that could be phlegmon or developing abscess. Tumor not excluded. Normal epiglottis. Hurricaine spray and lidocaine injected into right peritonsillar abscess, 18-gauge spinal needle used to drain abscess. Spoke with Dr. Cook who wanted patient to be given IV clindamycin here. Clindamycin and Decadron given here. Clindamycin 3 times a day 10 days was prescribed. Patient follow-up with Dr. Cook in the next couple days for follow-up. Strict return precautions were discussed with patient. Patient verbally agreed to plan. Patient sent home in stable condition. Case discussed with my attending, . - Lab Data Result diagrams: 12/11/21 12:48 12/11/21 12:48 Lab Results 12/11/21 12/11/21 12/11/21 Range/Units 12:48 12:48 12:48 WBC 8.4 (3.8-10.6) k/uL RBC 4.50 (3.80-5.40) m/uL Hgb 12.2 (11.4-16.0) gm/dL Hct 36.7 (34.0-46.0) % MCV 81.6 (80.0-100.0) fL MCH 27.2 (25.0-35.0) pg MCHC 33.3 (31.0-37.0) g/dL RDW 15.0 (11.5-15.5) % Plt Count 370 (150-450) k/uL MPV 7.0 Neutrophils % 64 % Lymphocytes % 29 % Monocytes % 4 % Eosinophils % 1 % Basophils % 0 % Neutrophils # 5.3 (1.3-7.7) k/uL Lymphocytes # 2.4 (1.0-4.8) k/uL Monocytes # 0.3 (0-1.0) k/uL Eosinophils # 0.1 (0-0.7) k/uL Basophils # 0.0 (0-0.2) k/uL Sodium 139 (137-145) mmol/L Potassium 3.9 (3.5-5.1) mmol/L Chloride 109 H (98-107) mmol/L Carbon Dioxide 24 (22-30) mmol/L Anion Gap 6 mmol/L BUN 13 (7-17) mg/dL Creatinine 0.65 (0.52-1.04) mg/dL Est GFR (CKD-EPI)AfAm >90 (>60 ml/min/1.73 sqM) Est GFR (CKD-EPI)NonAf >90 (>60 ml/min/1.73 sqM) Glucose 80 (74-99) mg/dL Calcium 9.1 (8.4-10.2) mg/dL Total Bilirubin 0.6 (0.2-1.3) mg/dL AST 20 (14-36) U/L ALT 13 (4-34) U/L Alkaline Phosphatase 93 (38-126) U/L Total Protein 7.2 (6.3-8.2) g/dL Albumin 3.7 (3.5-5.0) g/dL Heterophile Antibody Negative (Negative) Disposition Clinical Impression: Peritonsillar abscess Disposition: HOME SELF-CARE Condition: Stable Instructions (If sedation given, give patient instructions): Peritonsillar Abscess (ED), Abscess Incision and Drainage (ED) Additional Instructions: Please return to the emergency department with any concerning, new, or worsening symptoms. Please follow up with ears nose and throat next 24-48 hours. Prescriptions: Clindamycin [Cleocin] 300 mg PO TID 10 Days #60 cap Clindamycin HCl 300 mg PO QID #40 cap Is patient prescribed a controlled substance at d/c from ED?: No Referrals: Jero Scott MD [Primary Care Provider] - 1-2 days Eliel Cook MD [STAFF PHYSICIAN] - 1-2 days Time of Disposition: 15:55
--- NOTE | 2021-12-11 14:32 | CT ---
EXAMINATION TYPE: CT soft tissue neck w con DATE OF EXAM: 12/11/2021 COMPARISON: None HISTORY: Possible abscess CT DLP: mGycm Automated exposure control for dose reduction was used. CONTRAST: Images obtained from the aortic arch to the top of the orbits with IV contrast Isovue 100 mL. FINDINGS: There is normal branching pattern of the great vessels on the aortic arch. There is arterial flow in the common internal and external carotid arteries bilaterally. There is normal contrast opacification of the jugular veins and the vertebral arteries. Thyroid gland is symmetric. Submandibular salivary glands are symmetric. The visualized trachea appears normal. Epiglottis is normal. There is increased density in the right side oral pharynx consistent with enlarged right tonsil. Ther e is central 16 mm hypodense area that could be developing abscess. Right tonsil measures 2.3 cm. Lef t tonsil measures 11 mm. The adenoids appear normal. Parotid glands appear normal. There is no evidence of any significant cervical adenopathy. The tongue appears normal. There is fairly normal aeration of the paranasal sinuses. I see no bony destructive process. Cervical vertebra have normal alignment. Disc spaces are normal. IMPRESSION: Enlarged right tonsil with hypodense central area that could be phlegmon or developing abscess. Tumor not excluded. Normal epiglottis.
[2021-12-11] MEDS ORDERED: KETOROLAC 15 MG/ML 1 ML VIAL IM STA (14:49)
[2021-12-11] MEDS ORDERED: dexAMETHasone 2 MG TAB PO STA (15:35)
[2021-12-11] MEDS ORDERED: BENZOCAINE SPRAY 1 CAN TOPICAL STA (15:36)
[2021-12-11] MEDS ORDERED: LIDOCAINE 1% INJ 10MG/ML (20 ML MDV) SQ ONE (15:36)
[2021-12-11] MEDS ORDERED: CLINDAMYCIN 150 MG CAP PO STA (15:39)
[2021-12-11] MEDS ORDERED: DEXAMETHASONE SOD PHOSPHATE 10 MG/ML 1 ML VIAL IVP STA (15:49)
[2021-12-11] MEDS ORDERED: CLINDAMYCIN 900 MG in DEXTROSE 5% IN WATER 50 ML IVPB STA ×2 (15:55)
== END 2021-12-11 17:29 | disposition home or self-care (01) ==
LOC: EC 11:34
DX: J36 Peritonsillar abscess (principal); E07.9 Disorder of thyroid, unspecified; F41.9 Anxiety disorder, unspecified; F31.9 Bipolar disorder, unspecified; Z88.0 Allergy status to penicillin; Z88.1 Allergy status to other antibiotic agents; Z88.2 Allergy status to sulfonamides; Z90.49 Acquired absence of other specified parts of digestive tract
CPT/HCPCS: 99283; 96365; 96375; 96361; 96372; 42700; 36415; 80053; 85025; 86308; 70491; J1100; J2001; J1885; Q9967

== ENCOUNTER 2022-10-24 06:29 | Emergency (ER) | payer OTHER ==
--- NOTE | 2022-10-24 08:09 | ED ---
General Adult HPI - General Chief complaint: ENT Stated complaint: throat pain Time Seen by Provider: 10/24/22 07:48 Source: patient, RN notes reviewed Mode of arrival: ambulatory Limitations: no limitations - History of Present Illness Initial comments: 32-year-old female coming into the emergency department sore throat x 4 days. She states she has been sick since before and was given a Z-Zachary for her symptoms with no relief. She also complains of accompanying symptoms of cough. Denies headache fever, palpitations, difficulty breathing. She reports negative COVID/flu/RSV tests. She reports a history of peritonsillar abscesses that she's had to have drained. - Related Data Home Medications Medication Instructions Recorded Confirmed Levothyroxine Sodium [Synthroid] 100 mcg PO HS 04/09/17 06/15/21 Cholecalciferol [Vitamin D3 (25 50 mcg PO DAILY 06/15/21 06/15/21 Mcg = 1000 Iu)] Famotidine [Pepcid] 20 mg PO BID 06/15/21 06/15/21 Gummie 1 tab PO HS 06/15/21 06/15/21 Sertraline [Zoloft] 100 mg PO HS 06/15/21 06/15/21 Previous Rx's Medication Instructions Recorded Clindamycin [Cleocin] 300 mg PO TID 10 Days #60 cap 12/11/21 clindamycin HCL [Clindamycin HCl] 300 mg PO QID #40 cap 12/11/21 Allergies Allergy/AdvReac Type Severity Reaction Status Date / Time cefaclor [From Ceclor] Allergy Unknown Verified 10/24/22 06:38 cephalexin monohydrate Allergy Unknown Verified 10/24/22 06:38 [From Keflex] Penicillins Allergy Unknown Verified 10/24/22 06:38 Sulfa (Sulfonamide Allergy Unknown Verified 10/24/22 06:38 Antibiotics) Review of Systems ROS Statement: Those systems with pertinent positive or pertinent negative responses have been documented in the HPI. ROS Other: All systems not noted in ROS Statement are negative. Past Medical History Past Medical History: Thyroid Disorder Additional Past Medical History / Comment(s): migraines, hypothyroid History of Any Multi-Drug Resistant Organisms: None Reported Past Surgical History: Appendectomy, Section, Cholecystectomy Past Anesthesia/Blood Transfusion Reactions: No Reported Reaction Past Psychological History: Anxiety, Bipolar, Depression Smoking Status: Never smoker Past Alcohol Use History: Occasional Past Drug Use History: None Reported - Past Family History Father Family Medical History: Hypertension General Exam Limitations: no limitations General appearance: alert, in no apparent distress Head exam: Present: atraumatic, normocephalic, normal inspection Eye exam: Present: normal appearance, PERRL, EOMI. Absent: scleral icterus, conjunctival injection, periorbital swelling ENT exam: Present: normal exam, mucous membranes moist Expanded Throat exam: tonsillomegaly. negative: tonsillar erythema, tonsillar exudate Neck exam: Present: normal inspection. Absent: tenderness, meningismus, lymphadenopathy Respiratory exam: Present: normal lung sounds bilaterally. Absent: respiratory distress, wheezes, rales, rhonchi, stridor Cardiovascular Exam: Present: regular rate, normal rhythm, normal heart sounds. Absent: systolic murmur, diastolic murmur, rubs, gallop, clicks GI/Abdominal exam: Present: soft, normal bowel sounds. Absent: distended, t enderness, guarding, rebound, rigid Neurological exam: Present: alert, oriented X3, CN II-XII intact Psychiatric exam: Present: normal affect, normal mood Skin exam: Present: warm, dry, intact, normal color. Absent: rash Course Vital Signs 10/24/22 06:38 Temperature 98 F Pulse Rate 83 Respiratory 16 Rate Blood Pressure 119/75 O2 Sat by Pulse 98 Oximetry Medical Decision Making - Medical Decision Making 82-year-old female coming in for sore throat. Patient had lab work and imaging performed in the ED. Labs unremarkable and all within normal limits. I interpreted the following; CT head and neck negative for evidence of peritonsillar abscess. I discussed in detail results with the patient all questions addressed. Patient discharged in stable condition. Case discussed with Dr. Tenorio. - Lab Data Result diagrams: 10/24/22 08:33 10/24/22 08:33 Lab Results 10/24/22 10/24/22 10/24/22 Range/Units 06:47 08:33 08:33 WBC 10.3 (3.8-10.6) k/uL RBC 4.41 (3.80-5.40) m/uL Hgb 12.3 (11.4-16.0) gm/dL Hct 35.9 (34.0-46.0) % MCV 81.3 (80.0-100.0) fL MCH 27.9 (25.0-35.0) pg MCHC 34.3 (31.0-37.0) g/dL RDW 13.3 (11.5-15.5) % Plt Count 370 (150-450) k/uL MPV 7.2 Neutrophils % 67 % Lymphocytes % 26 % Monocytes % 4 % Eosinophils % 1 % Basophils % 1 % Neutrophils # 6.9 (1.3-7.7) k/uL Lymphocytes # 2.7 (1.0-4.8) k/uL Monocytes # 0.4 (0-1.0) k/uL Eosinophils # 0.1 (0-0.7) k/uL Basophils # 0.1 (0-0.2) k/uL Sodium (137-145) mmol/L Potassium (3.5-5.1) mmol/L Chloride (98-107) mmol/L Carbon Dioxide (22-30) mmol/L Anion Gap mmol/L BUN (7-17) mg/dL Creatinine (0.52-1.04) mg/dL Est GFR (CKD-EPI)AfAm (>60 ml/min/1.73 sqM) Est GFR (CKD-EPI)NonAf (>60 ml/min/1.73 sqM) Glucose (74-99) mg/dL Calcium (8.4-10.2) mg/dL Total Bilirubin (0.2-1.3) mg/dL AST (14-36) U/L ALT (4-34) U/L Alkaline Phosphatase (38-126) U/L Total Protein (6.3-8.2) g/dL Albumin (3.5-5.0) g/dL Heterophile Antibody Negative (Negative) Group A Strep (PCR) NOT DETECTED (Not Detectd) 10/24/22 Range/Units 08:33 WBC (3.8-10.6) k/uL RBC (3.80-5.40) m/uL Hgb (11.4-16.0) gm/dL Hct (34.0-46.0) % MCV (80.0-100.0) fL MCH (25.0-35.0) pg MCHC (31.0-37.0) g/dL RDW (11.5-15.5) % Plt Count (150-450) k/uL MPV Neutrophils % % Lymphocytes % % Monocytes % % Eosinophils % % Basophils % % Neutrophils # (1.3-7.7) k/uL Lymphocytes # (1.0-4.8) k/uL Monocytes # (0-1.0) k/uL Eosinophils # (0-0.7) k/uL Basophils # (0-0.2) k/uL Sodium 139 (137-145) mmol/L Potassium 4.0 (3.5-5.1) mmol/L Chloride 107 (98-107) mmol/L Carbon Dioxide 26 (22-30) mmol/L Anion Gap 6 mmol/L BUN 16 (7-17) mg/dL Creatinine 0.66 (0.52-1.04) mg/dL Est GFR (CKD-EPI)AfAm >90 (>60 ml/min/1.73 sqM) Est GFR (CKD-EPI)NonAf >90 (>60 ml/min/1.73 sqM) Glucose 103 H (74-99) mg/dL Calcium 8.4 (8.4-10.2) mg/dL Total Bilirubin 0.5 (0.2-1.3) mg/dL AST 22 (14-36) U/L ALT 25 (4-34) U/L Alkaline Phosphatase 65 (38-126) U/L Total Protein 6.7 (6.3-8.2) g/dL Albumin 3.6 (3.5-5.0) g/dL Heterophile Antibody (Negative) Group A Strep (PCR) (Not Detectd) Disposition Clinical Impression: Acute viral pharyngitis Disposition: HOME SELF-CARE Condition: Stable Instructions (If sedation given, give patient instructions): Pharyngitis (ED) Additional Instructions: Please return to the ER if fever or difficulty breathing. Is patient prescribed a controlled substance at d/c from ED?: No Referrals: Jero Scott MD [Primary Care Provider] - 1-2 days Time of Disposition: 09:42
[2022-10-24 08:40] LABS: Basophils # (A) 0.1 k/uL (0-0.2); Basophils % (A) 1 %; Eosinophils # (A) 0.1 k/uL (0-0.7); Eosinophils % (A) 1 %; HCT 35.9 % (34.0-46.0); HGB 12.3 gm/dL (11.4-16.0); Lymphocytes # (A) 2.7 k/uL (1.0-4.8); Lymphocytes % (A) 26 %; MCH 27.9 pg (25.0-35.0); MCHC 34.3 g/dL (31.0-37.0); MCV 81.3 fL (80.0-100.0); Mean Platelet Volume 7.2; Monocytes # (A) 0.4 k/uL (0-1.0); Monocytes % (A) 4 %; Neutrophils # (A) 6.9 k/uL (1.3-7.7); Neutrophils % (A) 67 %; Platelet Count 370 k/uL (150-450); RBC 4.41 m/uL (3.80-5.40); RDW 13.3 % (11.5-15.5); WBC 10.3 k/uL (3.8-10.6)
[2022-10-24 08:59] LABS: ALT 25 U/L (4-34); AST 22 U/L (14-36); African American GFR (CKD) >90 (>60 ml/min/1.73 sqM); Albumin 3.6 g/dL (3.5-5.0); Alkaline Phosphatase 65 U/L (38-126); Anion Gap 6 mmol/L; Blood Urea Nitrogen 16 mg/dL (7-17); Calcium 8.4 mg/dL (8.4-10.2); Carbon Dioxide 26 mmol/L (22-30); Chloride 107 mmol/L (98-107); Glucose 103 mg/dL (74-99); Non-African American GFR(CKD) >90 (>60 ml/min/1.73 sqM); Sodium 139 mmol/L (137-145); Total Bilirubin 0.5 mg/dL (0.2-1.3); Total Protein 6.7 g/dL (6.3-8.2)
--- NOTE | 2022-10-24 09:19 | CT ---
EXAMINATION TYPE: CT soft tissue neck w con DATE OF EXAM: 10/24/2022 COMPARISON: 12/11/2021 HISTORY: Sore throat CT DLP: 467.5 mGycm CONTRAST: CT scan of the neck is performed with IV Contrast, patient injected with 100 mL of Isovue 300. Contrast enhanced CT of the neck was performed from the skull base through the lung apices. AIRWAY: There is fullness of the tonsillar pillars bilaterally left slightly greater than right may reflect tonsillitis. There is no evidence for abscess. Overall the appearance is improved relative to the prior examination. The supraglottic, glottic, and subglottic portions of the airway appear paten t and free of mass. SALIVARY GLANDS: The submandibular and parotid glands are free of mass or inflammatory process. THYROID GLAND: No nodules or masses seen. LYMPH NODES: No adenopathy seen greater than 1cm. LUNG APICES: No nodule or mass is seen. OTHER: Vascular structures are patent. No significant degenerative change of the cervical spine. N o abscess seen. IMPRESSION: There is fullness of the tonsillar pillars bilaterally left slightly greater than right may reflect t onsillitis. There is no evidence for abscess. Overall the appearance is improved relative to the prio r examination.
[2022-10-24 09:50] VITALS: BP 107/70; PULSE 78; RESP 20; TEMP 98.7
== END 2022-10-24 09:49 | disposition home or self-care (01) ==
LOC: EC 06:29
DX: J02.9 Acute pharyngitis, unspecified (principal); E07.9 Disorder of thyroid, unspecified; F41.9 Anxiety disorder, unspecified; F31.9 Bipolar disorder, unspecified; Z88.0 Allergy status to penicillin; Z88.2 Allergy status to sulfonamides; Z88.1 Allergy status to other antibiotic agents; Z79.890 Hormone replacement therapy
CPT/HCPCS: 36415; 87651; 80053; 85025; 86308; 70491; 99283; Q9967

== ENCOUNTER 2023-09-19 16:36 | Emergency (ER) | payer OTHER ==
[2023-09-19 17:47] LABS: Anisocytosis Slight; Basophils # (A) 0.1 k/uL (0-0.2); Basophils % (A) 1 %; Eosinophils # (A) 0.3 k/uL (0-0.7); Eosinophils % (A) 2 %; HCT 36.1 % (34.0-46.0); HGB 11.7 gm/dL (11.4-16.0); Hypochromasia Slight; Lymphocytes # (A) 2.3 k/uL (1.0-4.8); Lymphocytes % (A) 18 %; MCH 26.6 pg (25.0-35.0); MCHC 32.5 g/dL (31.0-37.0); MCV 81.8 fL (80.0-100.0); Mean Platelet Volume 7.1; Monocytes # (A) 0.5 k/uL (0-1.0); Monocytes % (A) 4 %; Neutrophils # (A) 9.5 k/uL (1.3-7.7); Neutrophils % (A) 75 %; Platelet Count 470 k/uL (150-450); RBC 4.42 m/uL (3.80-5.40); RDW 16.2 % (11.5-15.5); WBC 12.8 k/uL (3.8-10.6)
[2023-09-19 17:55] LABS: ALT 43 U/L (4-34); AST 46 U/L (14-36); African American GFR (CKD) >90 (>60 ml/min/1.73 sqM); Albumin 3.4 g/dL (3.5-5.0); Alkaline Phosphatase 133 U/L (38-126); Anion Gap 11 mmol/L; Blood Urea Nitrogen 11 mg/dL (7-17); Calcium 8.7 mg/dL (8.4-10.2); Carbon Dioxide 20 mmol/L (22-30); Chloride 108 mmol/L (98-107); Glucose 132 mg/dL (74-99); Non-African American GFR(CKD) >90 (>60 ml/min/1.73 sqM); Potassium 4.5 mmol/L (3.5-5.1); Sodium 139 mmol/L (137-145); Total Bilirubin 0.4 mg/dL (0.2-1.3); Total Protein 6.7 g/dL (6.3-8.2)
--- NOTE | 2023-09-19 18:56 | ED ---
Female Urogenital HPI - General Chief complaint: Vaginal Bleeding Stated complaint: post bleeding Source: patient, RN notes reviewed Mode of arrival: ambulatory Limitations: no limitations - History of Present Illness Initial comments: Patient had a at [facility], by Dr. Vallecillo on September 09. Patient states she had essentially stopped bleeding and then today started having large amount of vaginal bleeding. Complaining of some lightheadedness. No palpitations. No syncope. No skin pain. Continue more than 1 pad per hour. No shortness of breath or chest pain. No other bleeding sites. No edema. No fever or chills. No irritative voiding. No vaginal discharge. No headache. No abdominal pain. Last Menstrual Period: 09/19/23 - Related Data Home Medications Medication Instructions Recorded Confirmed Levothyroxine Sodium [Synthroid] 100 mcg PO HS 04/09/17 06/15/21 Cholecalciferol [Vitamin D3 (25 50 mcg PO DAILY 06/15/21 06/15/21 Mcg = 1000 Iu)] Famotidine [Pepcid] 20 mg PO BID 06/15/21 06/15/21 Gummie 1 tab PO HS 06/15/21 06/15/21 Sertraline [Zoloft] 100 mg PO HS 06/15/21 06/15/21 Previous Rx's Medication Instructions Recorded Clindamycin [Cleocin] 300 mg PO TID 10 Days #60 cap 12/11/21 clindamycin HCL [Clindamycin HCl] 300 mg PO QID #40 cap 12/11/21 Methylergonovine [Methergine] 0.2 mg PO TID #15 tablet 09/19/23 Nitrofurantoin Monohyd/M-Cryst 100 mg PO BID 7 Days #14 cap 09/19/23 [Nitrofurantoin Crosby-Mcr 100 mg] Allergies Allergy/AdvReac Type Severity Reaction Status Date / Time cefaclor [From Ceclor] Allergy Unknown Verified 10/24/22 06:38 cephalexin monohydrate Allergy Unknown Verified 10/24/22 06:38 [From Keflex] Penicillins Allergy Unknown Verified 10/24/22 06:38 Sulfa (Sulfonamide Allergy Unknown Verified 10/24/22 06:38 Antibiotics) Review of Systems ROS Statement: Those systems with pertinent positive or pertinent negative responses have been documented in the HPI. ROS Other: All systems not noted in ROS Statement are negative. Past Medical History Past Medical History: Thyroid Disorder Additional Past Medical History / Comment(s): migraines, hypothyroid History of Any Multi-Drug Resistant Organisms: None Reported Past Surgical History: Appendectomy, Section, Cholecystectomy Past Anesthesia/Blood Transfusion Reactions: No Reported Reaction Past Psychological History: Anxiety, Bipolar, Depression Smoking Status: Never smoker Past Alcohol Use History: Occasional Past Drug Use History: None Reported - Past Family History Father Family Medical History: Hypertension General Exam - General Exam Comments Initial Comments: Patient mild distress, minimally tachycardic, cardiovascular, cranial nerves II through XII grossly intact Limitations: no limitations General appearance: alert, in distress Head exam: Present: atraumatic, normocephalic, normal inspection Eye exam: Present: normal appearance, PERRL, EOMI. Absent: scleral icterus, conjunctival injection, periorbital swelling ENT exam: Present: normal exam, mucous membranes moist Neck exam: Present: normal inspection. Absent: tenderness, meningismus, lymphadenopathy Respiratory exam: Present: normal lung sounds bilaterally. Absent: respiratory distress, wheezes, rales, rhonchi, stridor Cardiovascular Exam: Present: regular rate, normal rhythm, normal heart sounds. Absent: systolic murmur, diastolic murmur, rubs, gallop, clicks GI/Abdominal exam: Present: soft, normal bowel sounds. Absent: distended, tenderness, guarding, rebound, rigid Rectal exam: Present: deferred External exam: Present: normal external exam, other (Chaperoned pelvic exam female RN). Absent: erythema, swelling, lesions, lacerations, ecchymosis Speculum exam: Present: vaginal bleeding. Absent: erythema, vaginal discharge, cervical discharge, foreign body, tissue, laceration By manual exam: Present: normal by manual exam Extremities exam: Present: normal inspection, full ROM, normal capillary refill. Absent: tenderness, pedal edema, joint swelling, calf tenderness Back exam: Present: normal inspection Neurological exam: Present: alert, oriented X3, CN II-XII intact Psychiatric exam: Present: normal affect, normal mood Skin exam: Present: warm, dry, intact, normal color. Absent: rash Course Vital Signs 09/19/23 09/19/23 09/19/23 16:50 20:58 21:02 Temperature 98 F Pulse Rate 106 H Pulse Rate [ 116 H Sitting] Respiratory 16 Rate Blood Pressure 136/66 Blood Pressure 142/94 [Right Arm Sitting] Blood Pressure [Right Arm Standing] Blood Pressure 123/77 [Right Arm Supine] O2 Sat by Pulse 98 Oximetry 09/19/23 21:05 Temperature Pulse Rate Pulse Rate [ 113 H Sitting] Respiratory Rate Blood Pressure Blood Pressure [Right Arm Sitting] Blood Pressure 127/81 [Right Arm Standing] Blood Pressure [Right Arm Supine] O2 Sat by Pulse Oximetry - Reevaluation(s) Reevaluation #1: 09/19/23 22:16 Patient reevaluated, hemodynamically stable. Heart rate did go up from 106-116 standing. Patient not really complaining of prostatic symptoms. Case discussed in detail with Dr. Richmond who recommends Methergine Reevaluation #2: 09/19/23 22:20 Patient reevaluated, patient resting comfortably in bed. I did give the patient option of observation. Patient states she rather be treated as an outpatient and call her noodle maker in the morning. I did discuss processers cons of observation versus discharge. Patient should be followed up closely. He is to call Dr. Vallecillo in the morning without fail. Patient is lucid, able to make her own medical decisions. Aware of risks versus benefits to include limited mortality. Understands that she needs to call her PHONE SCREENER physician in the morning. She did have ever so slight elevations of AST and AST. Blood pressure was around 140/90 sometimes below and sometimes just above. Add on a urinalysis to check for proteinuria. Platelets were slightly elevated. I think this is unlikely to be preeclampsia, patient has no edema. 09/19/23 22:21 Medical Decision Making - Medical Decision Making Visual Physical Exam Vital signs reviewed General: Well-appearing, nontoxic, mildly anxious appearing, heart rate 106 Head: Normocephalic, atraumatic Eyes: PERRLA, EOMI ENT: Airway patent Chest: Nonlabored breathing Skin: No visual rash, normal skin tone Neuro: Alert and oriented 3 Musculoskeletal: No gross abnormalities Signed by Kaushik Sousa PAC Was pt. sent in by a medical professional or institution? @ -no, patient was told by her PHONE SCREENER office that if bleeding starts she should go to the nearest ER. Did you speak to anyone other than the patient for history? @ -no Did you review nursing and triage notes? @ -Agree Were old charts reviewed? @ -Previous laboratory studies reviewed Differential Diagnosis? @ -Vaginal bleeding, postoperative complication/postoperative bleeding. Unlikely be retained products of conception as the patient had a . Patient has no blood dyscrasias. Patient does not appear to have symptoms consistent with significant blood loss. Vision mildly tachycardic. Blood pressure stable. Not orthostatic by blood pressure. EKG interpreted by me (3pts min.)? @ -[none] X-rays interpreted by me (1pt min.)? @ -[none] CT interpreted by me (1pt min.)? @ -none U/S interpreted by me (1pt. min.)? @ -Transvaginal ultrasound independently interpreted by me shows heterogenous collection of fluid within the uterus. Reviewed radiology interpretation What testing was considered but not performed? (CT, X-rays, U/S, labs)? Why? @ none What meds were considered but not given? Why? @ -[none] Did you discuss the management of the patient with other professionals? @ -Case discussed in detail with Dr. Richmond who feels the patient is hemodynamically stable and can follow up with her noodle maker, Dr. Vallecillo in the morning. Did you reconcile home meds? @ -[none] Was smoking cessation discussed for >3mins.? @ -[none] Was critical care preformed (if so, how long)? @ -[none] Were there social determinants of health that impacted care today? How? (Homelessness, low income, unemployed, alcoholism, drug addiction, transportation, low edu. Level, literacy, decrease access to med. care, assisted, rehab)? @ -none Was there de-escalation of care discussed even if they declined? (Discuss DNR or withdrawal of care, Hospice)? @ -[Discuss DNR or withdrawal of care, Hospice?] What co-morbidities impacted this encounter? (DM, HTN, Smoking, COPD, CAD, Cancer, CVA, Hep., AIDS, mental health diagnosis, sleep apnea, morbid obesity)? @ -none Was patient admitted / discharged? @ -Stable, hemoglobin normal. Undiagnosed new problem with uncertain prognosis? @ -Vaginal bleeding, post . Drug Therapy requiring intensive monitoring for toxicity (Heparin, Nitro, Insulin, Cardizem)? @ -none Were any procedures done? @ -[none] Diagnosis/symptom? @ -Vaginal bleeding, status post on September 09. Acute, or Chronic, or Acute on Chronic? @ -Acute Uncomplicated (without systemic symptoms) or Complicated (systemic symptoms)? @ -Relatively uncomplicated given the patient's hemodynamically stable appearance and really no significant symptomology. Stable hemoglobin. Side effects of treatment? @ -[none] Exacerbation, Progression, or Severe Exacerbation] @ -[no] Poses a threat to life or bodily function? @ -Of course if this worsens it could posterior to life or bodily function. A long discussion with the patient regarding this. The case was discussed in detail with ED attending physician. Presentation, findings, treatment plan discussed in detail. After discussion with the noodle maker, I did offer admission to the patient. However the patient wants to go home. Patient does not want to be banded. Patient feels well enough to go home. Patient was somewhat concerned about her blood pressure which was rousing up-and-down in the low 140 systolic, was occasionally over 90 diastolic. However on several occasions was less than 130/80. Patient has no edema. Platelets are slightly high. Very mild elevations of ALT and AST. I did add on a uric acid and an LDH which were both somewhat high. Patient has no mental status changes. No headache. I think this is unlikely to be preeclampsia although this would need to be monitored. Should to call her regular physician Dr. Vallecillo in the morning. Urine culture sent. We'll cover with nitrofurantoin to have urine cultures obtained. This is unlikely the patient has preeclampsia. Did discuss this with the ED attending physician. - Lab Data Result diagrams: 09/19/23 21:06 09/19/23 16:56 Lab Results 09/19/23 09/19/23 09/19/23 Range/Units 16:56 16:56 16:56 WBC 12.8 H (3.8-10.6) k/uL RBC 4.42 (3.80-5.40) m/uL Hgb 11.7 (11.4-16.0) gm/dL Hct 36.1 (34.0-46.0) % MCV 81.8 (80.0-100.0) fL MCH 26.6 (25.0-35.0) pg MCHC 32.5 (31.0-37.0) g/dL RDW 16.2 H (11.5-15.5) % Plt Count 470 H (150-450) k/uL MPV 7.1 Neutrophils % 75 % Lymphocytes % 18 % Monocytes % 4 % Eosinophils % 2 % Basophils % 1 % Neutrophils # 9.5 H (1.3-7.7) k/uL Lymphocytes # 2.3 (1.0-4.8) k/uL Monocytes # 0.5 (0-1.0) k/uL Eosinophils # 0.3 (0-0.7) k/uL Basophils # 0.1 (0-0.2) k/uL Hypochromasia Slight Anisocytosis Slight Sodium 139 (137-145) mmol/L Potassium 4.5 (3.5-5.1) mmol/L Chloride 108 H (98-107) mmol/L Carbon Dioxide 20 L (22-30) mmol/L Anion Gap 11 mmol/L BUN 11 (7-17) mg/dL Creatinine 0.68 (0.52-1.04) mg/dL Est GFR (CKD-EPI)AfAm >90 (>60 ml/min/1.73 sqM) Est GFR (CKD-EPI)NonAf >90 (>60 ml/min/1.73 sqM) Glucose 132 H (74-99) mg/dL Uric Acid 8.1 H (3.7-7.4) mg/dL Calcium 8.7 (8.4-10.2) mg/dL Total Bilirubin 0.4 (0.2-1.3) mg/dL AST 46 H (14-36) U/L ALT 43 H (4-34) U/L Alkaline Phosphatase 133 H (38-126) U/L Lactate Dehydrogenase 257 H (120-246) U/L Total Protein 6.7 (6.3-8.2) g/dL Albumin 3.4 L (3.5-5.0) g/dL Urine Color Urine Appearance (Clear) Urine pH (5.0-8.0) Ur Specific [place] (1.001-1.035) Urine Protein (Negative) Urine Glucose (UA) (Negative) Urine Ketones (Negative) Urine Blood (Negative) Urine Nitrite (Negative) Urine Bilirubin (Negative) Urine Urobilinogen (<2.0) mg/dL Ur Leukocyte Esterase (Negative) Urine RBC (0-5) /hpf Urine WBC (0-5) /hpf Ur Squamous Epith Cells (0-4) /hpf Urine Bacteria (None) /hpf Urine Mucus (None) /hpf Blood Type Blood Type Recheck Bld Type Recheck Status Antibody Screen Spec Expiration Date 09/19/23 09/19/23 09/19/23 Range/Units 21:06 21:14 22:44 WBC 14.0 H (3.8-10.6) k/uL RBC 4.20 (3.80-5.40) m/uL Hgb 11.3 L (11.4-16.0) gm/dL Hct 34.0 (34.0-46.0) % MCV 80.8 (80.0-100.0) fL MCH 26.8 (25.0-35.0) pg MCHC 33.2 (31.0-37.0) g/dL RDW 16.4 H (11.5-15.5) % Plt Count 475 H (150-450) k/uL MPV 6.9 Neutrophils % % Lymphocytes % % Monocytes % % Eosinophils % % Basophils % % Neutrophils # (1.3-7.7) k/uL Lymphocytes # (1.0-4.8) k/uL Monocytes # (0-1.0) k/uL Eosinophils # (0-0.7) k/uL Basophils # (0-0.2) k/uL Hypochromasia Anisocytosis Slight Sodium (137-145) mmol/L Potassium (3.5-5.1) mmol/L Chloride (98-107) mmol/L Carbon Dioxide (22-30) mmol/L Anion Gap mmol/L BUN (7-17) mg/dL Creatinine (0.52-1.04) mg/dL Est GFR (CKD-EPI)AfAm (>60 ml/min/1.73 sqM) Est GFR (CKD-EPI)NonAf (>60 ml/min/1.73 sqM) Glucose (74-99) mg/dL Uric Acid (3.7-7.4) mg/dL Calcium (8.4-10.2) mg/dL Total Bilirubin (0.2-1.3) mg/dL AST (14-36) U/L ALT (4-34) U/L Alkaline Phosphatase (38-126) U/L Lactate Dehydrogenase (120-246) U/L Total Protein (6.3-8.2) g/dL Albumin (3.5-5.0) g/dL Urine Color Colorless Urine Appearance Clear (Clear) Urine pH 5.5 (5.0-8.0) Ur Specific [place] 1.014 (1.001-1.035) Urine Protein Negative (Negative) Urine Glucose (UA) Negative (Negative) Urine Ketones Negative (Negative) Urine Blood Large H (Negative) Urine Nitrite Negative (Negative) Urine Bilirubin Negative (Negative) Urine Urobilinogen <2.0 (<2.0) mg/dL Ur Leukocyte Esterase Moderate H (Negative) Urine RBC 25 H (0-5) /hpf Urine WBC 21 H (0-5) /hpf Ur Squamous Epith Cells <1 (0-4) /hpf Urine Bacteria Rare H (None) /hpf Urine Mucus Occasional H (None) /hpf Blood Type B Positive Blood Type Recheck B Pos Bld Type Recheck Status No Antibody Screen NEGATIVE Spec Expiration Date 09/22/20232313 Disposition Clinical Impression: Vaginal bleeding, Abnormal urine Disposition: HOME SELF-CARE Condition: Good Instructions (If sedation given, give patient instructions): Abnormal (Dysfunctional) Uterine Bleeding (ED) Additional Instructions: Call your PHONE SCREENER physician office, Dr. Vallecillo, in the morning at 8 AM to be rechecked tomorrow without fail. Follow-up with your regular physician as directed. Return to the ER immediately if any symptoms worsen, new symptoms arise, or any other problems develop. Make sure he tell the office that he had laboratory work as well as an ultrasound done here at [facility]. Urine culture has been sent. Take the antibiotic as discussed in detail urine culture can be reviewed by your PHONE SCREENER physician. Prescriptions: Methylergonovine [Methergine] 0.2 mg PO TID #15 tablet Nitrofurantoin Monohyd/M-Cryst [Nitrofurantoin Crosby-Mcr 100 mg] 100 mg PO BID 7 Days #14 cap Is patient prescribed a controlled substance at d/c from ED?: No Referrals: Jero Scott MD [Primary Care Provider] - 1-2 days Time of Disposition: 23:33
--- NOTE | 2023-09-19 19:46 | US ---
EXAMINATION TYPE: US pelvic complete DATE OF EXAM: 09/19/2023 COMPARISON: NONE CLINICAL INDICATION: Female, 32 years old with history of Vaginal bleeding, status post sect ion; 09/09/23. Pt states at 4pm today she has been having heavy bleeding. TECHNIQUE: . Transabdominal sonographic images of the pelvis were acquired. Date of LMP: 9 months ago EXAM MEASUREMENTS: Uterus: 15.0 x 9.7 x 8.2 cm Endometrial Stripe: 2.1 cm Right Ovary: 3.5 x 2.6 x 2.5 cm Left Ovary: Not seen 1. Uterus: Anteverted wnl 2. Endometrium: Thickened, heterogeneous, and there appears to be a complex fluid throughout entire endometrium 3. Right Ovary: wnl 4. Left Ovary: Not seen due to enlarged UT and bowel 5. Bilateral Adnexa: wnl 6. Posterior cul-de-sac: wnl IMPRESSION: Thickened heterogenous endometrium concerning for retained products of conception. Correlate clinical ly.
[2023-09-19] MEDS ORDERED: SODIUM CHLORIDE 0.9% 1,000 ML IV SCH (21:00)
[2023-09-19 21:31] LABS: Anisocytosis Slight; HGB 11.3 gm/dL (11.4-16.0); MCH 26.8 pg (25.0-35.0); MCHC 33.2 g/dL (31.0-37.0); MCV 80.8 fL (80.0-100.0); Mean Platelet Volume 6.9; Platelet Count 475 k/uL (150-450); RDW 16.4 % (11.5-15.5)
[2023-09-19] MEDS ORDERED: METHYLERGONOVINE 0.2 MG/ML 1 ML AMP IM ONE (22:15)
[2023-09-19 22:46] LABS: Uric Acid 8.1 mg/dL (3.7-7.4)
[2023-09-19 23:14] LABS: Appearance,Urine Clear (Clear); Bacteria,Urine Rare /hpf; Bilirubin,Urine Negative (Negative); Blood,Urine Large (Negative); Color,Urine Colorless; Glucose,Urine (UA) Negative (Negative); Ketones,Urine Negative (Negative); Leukocyte Esterase,Urine Moderate (Negative); Mucus,Urine Occasional /hpf; Nitrite,Urine Negative (Negative); PH, Urine 5.5 (5.0-8.0); Protein,Urine Negative (Negative); RBC,Urine 25 /hpf (0-5); Specific Gravity,Urine 1.014 (1.001-1.035); Squamous Epithelial Cell,Urine <1 /hpf (0-4); Urobilinogen,Urine <2.0 mg/dL (<2.0); WBC,Urine 21 /hpf (0-5)
[2023-09-20 00:19] VITALS: BP 142/75; PULSE 95; RESP 18; TEMP 98.1
== END 2023-09-20 00:16 | disposition home or self-care (01) ==
LOC: EC 16:36
DX: N93.9 Abnormal uterine and vaginal bleeding, unspecified (principal); E03.9 Hypothyroidism, unspecified; F41.9 Anxiety disorder, unspecified; F31.9 Bipolar disorder, unspecified; Z79.899 Other long term (current) drug therapy; Z79.890 Hormone replacement therapy; Z88.0 Allergy status to penicillin; Z88.2 Allergy status to sulfonamides; Z88.1 Allergy status to other antibiotic agents; Z88.8 Allergy status to other drugs, medicaments and biological substances; Z90.49 Acquired absence of other specified parts of digestive tract
CPT/HCPCS: 36415; 86900; 86901; 80053; 83615; 84550; 85025; 85027; 86850; 81001; 87086; 87077; 87186; 76856; 99284; 96360; 96372; J2210